=== PATIENT | female | born 1965 | race Caucasian/White ===

== ENCOUNTER 2023-09-24 10:29 | Day surgery (SDC) | payer OTHER ==
[2023-09-23 14:36] LABS: Absolute Lymphocytes (CBC) 5.6 K/uL (0.7-4.9); Hematocrit 42.7 % (36.0-45.0); Lymphocytes % 35.6 % (15.3-44.8); MCV 78.2 fL (80-100); MPV 8.3 fL (7.6-11.3); Platelets 319 thou/uL (152-406); RBC Red Blood Cell Count 5.46 M/uL (3.86-4.86)
[2023-09-23 14:40] LABS: Protime INR 0.92
[2023-09-23 14:50] LABS: Potassium 4.4 mEq/L (3.5-5.1)
[2023-09-24] MEDS ORDERED: NA CHLORIDE 0.9% 1,000 ML ONE (10:43)
[2023-09-24] MEDS ORDERED: CEFAZOLIN SODIUM 2 GM/VIAL ONE (10:43)
[2023-09-24] MEDS ORDERED: propofoL 200 MG/20 ML VIAL IV ONE (12:09)
[2023-09-24] MEDS ORDERED: MIDAZOLAM HCL 2 MG/2 ML INJ ONE (12:09)
[2023-09-24] MEDS ORDERED: LIDOCAINE 2% MPF 5 ML VIAL ONE (12:09)
[2023-09-24] MEDS ORDERED: dexAMETHasone 10 MG/ML VIAL ONE (12:09)
[2023-09-24] MEDS ORDERED: ONDANSETRON 4 MG/2 ML VIAL ONE (12:09)
[2023-09-24] MEDS ORDERED: FENTANYL CITR 100 MCG/2 ML ONE (12:10)
[2023-09-24] MEDS ORDERED: BUPIVACAINE 0.25% PF 10 ML VIAL ONE (12:12)
[2023-09-24] MEDS ORDERED: SUCCINYLCHOLINE 20 MG/ML (10 ML) IV ONE (12:28)
[2023-09-24] MEDS ORDERED: NS IV ONE (13:00)
[2023-09-24] MEDS ORDERED: CLINDAMYCIN IV ONE (13:00)
[2023-09-24] MEDS ORDERED: CLINDAMYCIN 300MG D5W 300 MG/50 ML BAG IV ONE (13:00)
--- NOTE | 2023-09-24 13:05 | P.OP ---
Preoperative diagnosis: LEFT Axillary Infected Hidradenitis with Abscess Postoperative diagnosis: LEFT Axillary Infected Hidradenitis with Abscess Primary procedure: Excisional Debridement of LEFT Axillary Infected Hidradenitis with Abscess Anesthesia: GETA + Local Estimated blood loss: ~5cc Specimen: Cultures, Debridement Tissue Findings: ~ 4cm x 3 cm LEFT Axillary Infected Hidradenitis with Abscess Complications: None Transferred to: Recovery Room Condition: Good
[2023-09-24] MEDS: HYDROMORPHONE HCL 1 MG/ML INJ ONE ×2 (13:21→13:29)
[2023-09-24] MEDS ORDERED: HYDROMORPHONE HCL 1 MG/ML INJ ONE (13:45)
[2023-09-24 15:12] VITALS: BP 149/76; TEMP 97.8; O2SAT 100
--- NOTE | 2023-09-24 15:21 | EKG ---
Test Date: 2023-09-23 Test Time: 15:14:40 Research And Development Chemist: WILFREDO MEASUREMENT RESULTS: Intervals: Rate: 112 IL: 160 QRSD: 86 QT: 358 QTc: 488 [place]: P: 68 IL: 160 QRS: 34 T: 50 INTERPRETIVE STATEMENTS: Sinus tachycardia Otherwise normal ECG No previous ECG available for comparison Electronically Signed On 09-24-23 15:19:38 LEAD ATHLETE by Evert العراقي
--- NOTE | 2023-09-24 20:14 | OP ---
Date of Procedure: 09/24/2023 Surgeon: Inderjit Raza MD, Preoperative Diagnosis: Left axillary infected hidradenitis with abscess. Postoperative Diagnosis: Left axillary infected hidradenitis with abscess. Procedure Performed: Excisional debridement of left axillary infected hidradenitis suppurativa with abscess. Anesthesia: General endotracheal plus local. Estimated Blood Loss: Less than 5 cc. Specimens: Culture sent for aerobic and anaerobic speciation and debridement tissue. Findings: Approximately 4 cm x 3 cm left axillary infected hidradenitis with abscess. Complications: None. Disposition: The patient was transferred to recovery room in good condition. Procedure In Detail: After informed consent was obtained, the patient was brought to the OR, prepped and draped in the usual sterile fashion. After adequate anesthesia was achieved, an elliptical inci ady down to subcutaneous tissue circumferentially dissecting out a left axillary abscess cavity whic h had abscess material was sent for both aerobic and anaerobic speciation with cultures at this point . I then removed all infected tissue including the necrotic and affected ellipse of skin down to sub cutaneous axillary fat. This was sent off for pathologic examination. I then achieved hemostasis wi th electrocautery. The wound was then irrigated copiously and packed with Vashe-soaked gauze and kavitha rile dressing placed over top. The patient tolerated the procedure without evidence of complication and transferred to PACU in good condition. All counts were correct at the end of the case. HOUSTON/CHEN Voice ID: [id number] Report ID: [id number]
== END 2023-09-24 14:41 | disposition home or self-care (01) ==
LOC: OR 10:29
PROVIDERS: ATTEND Surgery
PROC: 0JBF0ZZ Excision of Left Upper Arm Subcutaneous Tissue and Fascia, Open Approach (ICD-10-PCS; principal; 2023-09-24 13:00)
DX: L73.2 Hidradenitis suppurativa (principal); L02.412 Cutaneous abscess of left axilla; E11.9 Type 2 diabetes mellitus without complications; Z88.0 Allergy status to penicillin
CPT/HCPCS: 93005; 87070; 85025; 80048; 36415; 87205; 85610; 82947 ×2; 88304; 85730; 87075; 11450; J2704; J2001; J2250; J3010; J1100; J1170 ×2; J2405; J3490; J7030

== ENCOUNTER 2024-02-11 08:40 | Day surgery (SDC) | payer OTHER ==
[2024-02-10 13:37] LABS: Absolute Basophils 0.1 K/uL (0-0.5); Absolute Lymphocytes (CBC) 6.7 K/uL (0.7-4.9); Absolute Monocytes 0.7 K/uL (0.1-1.3); Absolute Neutrophil 10.4 K/uL (1.8-8.0); Basophils % 0.6 % (0-1.3); Eosinophils % 0.2 % (0-4.4); Hematocrit 44.7 % (36.0-45.0); Hemoglobin 14.3 g/dL (12.0-15.0); Lymphocytes % 37.1 % (15.3-44.8); MPV 8.6 fL (7.6-11.3); Monocytes % 3.8 % (3.3-12.3); Neutrophils % 58.3 % (41.7-73.7); Platelets 380 thou/uL (152-406); RBC Red Blood Cell Count 5.51 M/uL (3.86-4.86); Red Cell Distribution Width 14.2 % (12.1-15.2)
[2024-02-10 13:58] LABS: Anion Gap 11.3 mEq/L (5.0-15.0); Potassium 5.3 mEq/L (3.5-5.1)
[2024-02-11] MEDS ORDERED: VANCOMYCIN 1 GM/VIAL ONE (08:54)
[2024-02-11] MEDS ORDERED: NA CHLORIDE 0.9% 1,000 ML ONE (08:54)
[2024-02-11] MEDS ORDERED: NA CHLORIDE 0.9% 250 ML ONE (08:55)
[2024-02-11] MEDS ORDERED: LIDOCAINE HCL/EPINEPHRINE 20 ML MDV ONE (08:59)
[2024-02-11] MEDS ORDERED: BUPIVACAINE 0.25% PF 30 ML VIAL ONE (08:59)
[2024-02-11] MEDS ORDERED: FENTANYL CITR 100 MCG/2 ML ONE ×2 (09:16→11:04)
[2024-02-11] MEDS ORDERED: MIDAZOLAM HCL 2 MG/2 ML INJ ONE ×2 (09:16→11:06)
[2024-02-11] MEDS ORDERED: propofoL 200 MG/20 ML VIAL IV ONE ×2 (09:16→11:03)
[2024-02-11] MEDS ORDERED: LIDOCAINE 2% MPF 5 ML VIAL ONE (09:17)
[2024-02-11] MEDS ORDERED: LIDOCAINE 1% MPF 5 ML VIAL ONE (11:03)
[2024-02-11] MEDS ORDERED: ONDANSETRON 4 MG/2 ML VIAL ONE (11:36)
[2024-02-11] MEDS: LIDOCAINE HCL/EPINEPHRINE 20 ML MDV IJ ONE ×2 (11:38)
--- NOTE | 2024-02-11 12:15 | OP ---
Date of Procedure: 02/11/2024 Surgeon: Inderjit Raza MD, Preoperative Diagnosis: Right pubic abscess. Postoperative Diagnosis: Right pubic abscess. Procedure Performed: Incision, drainage, and debridement, right pubic abscess. Anesthesia: General endotracheal plus local with 1% lidocaine with epinephrine. Estimated Blood Loss: 5 cc. Specimen: Culture sent for both aerobic and anaerobic speciation and debridement tissue. Findings: A multiloculated right pubic abscess approximately 3 cm x 2 cm x 2 cm into the adipose. Complications: None. Disposition: The patient was transferred to recovery room in good condition. Procedure In Detail: After informed consent was obtained, the patient was brought to the operating r oom, prepped and draped in the usual sterile fashion. After adequate anesthesia was achieved, I made an elliptical incision circumferentially around an obvious abscess in the right pubic region down to subcutaneous tissues, immediately encountered was abscess material. This was cultured both aerobic and anaerobic speciation at this time. I then used a combination of sharp dissection as well as elec trocautery to dissect out this abscess cavity and material in its entirety removing the entire area o ut digitizing a multiloculated abscess, breaking up all the loculations. At this point, the area was copiously irrigated. Hemostasis was achieved with electrocautery. The wound was then packed with V ayana-soaked packing. Sterile dressing was placed over top. The patient tolerated the procedure with out incident or complication, transferred to PACU in good condition. All counts were correct at the end of the case. HOUSTON/CHEN Voice ID: [id number] Report ID: [id number]
[2024-02-11] MEDS: HYDROCODONE/APAP 7.5/325 MG TAB ONE (12:21)
--- NOTE | 2024-02-11 14:39 | EKG ---
Test Date: 2024-02-10 Test Time: 13:22:15 [employer]ime Kiln Worker: LILLY MEASUREMENT RESULTS: Intervals: Rate: 119 IN: 162 QRSD: 82 QT: 336 QTc: 472 [place]: P: 77 IN: 162 QRS: 45 T: 77 INTERPRETIVE STATEMENTS: Sinus tachycardia Otherwise normal ECG Compared to ECG 09/23/2023 15:14:40 No significant changes Electronically Signed On 02-11-24 14:36:56 CDT by Evert العراقي
--- NOTE | 2024-02-11 19:17 | P.OP ---
Preoperative diagnosis: RIGHT Pubic Abscess Postoperative diagnosis: RIGHT Pubic Abscess Primary procedure: Incision, Drainage, Debridement of RIGHT Pubic Abscess Anesthesia: GETA + Local Estimated blood loss: <5cc Specimen: Cultures ,Debridement Tissue Findings: Multiloculated RIGHT Pubic Abscess ~ 3cm x 2cm x 2cm Complications: None Transferred to: Recovery Room Condition: Good
[2024-02-12 14:34] VITALS: BP 141/76; TEMP 96.7; O2SAT 100
== END 2024-02-11 13:07 | disposition home or self-care (01) ==
LOC: OR 08:40
PROVIDERS: ATTEND Surgery
PROC: 0JDC0ZZ Extraction of Pelvic Region Subcutaneous Tissue and Fascia, Open Approach (ICD-10-PCS; principal; 2024-02-11 10:45)
DX: L02.219 Cutaneous abscess of trunk, unspecified (principal); E11.9 Type 2 diabetes mellitus without complications
CPT/HCPCS: 93005; 87070; 85025; 80048; 36415; 87205; 82947 ×2; 88304; 87075; 11042; J2704; J2001; J2250; J3010; J2405; J7050; J7030

== ENCOUNTER 2024-08-04 08:04 | Day surgery (SDC) | payer OTHER ==
[2024-08-03 12:48] LABS: Absolute Basophils 0.1 K/uL (0-0.5); Absolute Eosinophils 0.1 K/uL (0-0.5); Absolute Lymphocytes (CBC) 5.6 K/uL (0.7-4.9); Absolute Monocytes 1.3 K/uL (0.1-1.3); Absolute Neutrophil 14.9 K/uL (1.8-8.0); Basophils % 0.4 % (0-1.3); Eosinophils % 0.5 % (0-4.4); Hematocrit 38.6 % (36.0-45.0); Hemoglobin 12.4 g/dL (12.0-15.0); Lymphocytes % 25.5 % (15.3-44.8); MCH 25.9 pg (27.0-35.0); MCHC 32.2 g/dL (32.0-36.0); MCV 80.3 fL (80-100); MPV 9.2 fL (7.6-11.3); Monocytes % 5.9 % (3.3-12.3); Neutrophils % 67.7 % (41.7-73.7); Platelets 296 thou/uL (152-406); RBC Red Blood Cell Count 4.81 M/uL (3.86-4.86); Red Cell Distribution Width 14.6 % (12.1-15.2)
[2024-08-03 13:16] LABS: Atypical Lymphocytes 1 %; Differential Total Cells Count 100; Eosinophils 2 % (0-3); Lymphocytes 30 % (15-42); Monocytes 3 % (0-10); Platelet Estimate ADEQ; Segmented Neutrophils 64 % (40-80)
[2024-08-03 13:17] LABS: Blood Morphology Comment NOT SEEN (NOT SEEN)
[2024-08-04] MEDS: NA CHLORIDE 0.9% 1,000 ML ONE (08:50)
[2024-08-04] MEDS ORDERED: CLINDAMYCIN 600MG/D5W 50 ML IV ONE (08:55)
[2024-08-04] MEDS ORDERED: FENTANYL CITR 100 MCG/2 ML ONE (09:18)
[2024-08-04] MEDS ORDERED: propofoL 200 MG/20 ML VIAL IV ONE (09:18)
[2024-08-04] MEDS ORDERED: MIDAZOLAM HCL 2 MG/2 ML INJ ONE (09:18)
[2024-08-04] MEDS ORDERED: KETOROLAC 30 MG/ML INJ ONE (09:18)
[2024-08-04] MEDS ORDERED: ONDANSETRON 4 MG/2 ML VIAL ONE (09:18)
[2024-08-04] MEDS ORDERED: LIDOCAINE HCL/EPINEPHRINE 20 ML MDV ONE (09:56)
[2024-08-04] MEDS ORDERED: Phenylephrine HCl 10 MG/ML 1 ML VIAL ONE (09:59)
[2024-08-04] MEDS: LIDOCAINE 1% MPF 5 ML VIAL ONE (10:11)
--- NOTE | 2024-08-04 10:30 | P.OP ---
Preoperative diagnosis: LEFT gluteal / perirectal abscess Postoperative diagnosis: LEFT gluteal / perirectal abscess Primary procedure: Incision and drainage of LEFT gluteal / perirectal abscess Anesthesia: GETA + Local Estimated blood loss: <5cc Specimen: Cultures, debridement tissue Findings: ~ 2cm abscess Complications: None Transferred to: Recovery Room Condition: Good
[2024-08-04] MEDS: HYDROMORPHONE HCL 1 MG/ML INJ ONE (10:36)
[2024-08-04] MEDS ORDERED: HYDROCODONE/APAP 7.5/325 MG TAB ONE (11:11)
[2024-08-04] MEDS: HYDROCODONE/APAP 7.5/325 MG TAB PO ONE (11:14)
[2024-08-04 11:45] VITALS: BP 138/83; TEMP 98.2; O2SAT 99
--- NOTE | 2024-08-04 16:28 | OP ---
Date of Procedure: 08/04/2024 Surgeon: Inderjit Raza MD, Preoperative Diagnosis: Left gluteal/perirectal abscess. Postoperative Diagnosis: Left gluteal/perirectal abscess. Procedure Performed: Incision and drainage of left gluteal/perirectal abscess. Anesthesia: General endotracheal plus local with 1% lidocaine with epinephrine. Estimated Blood Loss: Less than 5 cc. Specimens: Culture sent for both aerobic and anaerobic speciation and debridement of tissue. Findings: Approximately 2 cm perirectal abscess listing along the left gluteal region. Complications: None. Disposition: Patient transferred to recovery room in good condition. Procedure In Detail: After informed consent was obtained, patient was brought to the operating room, prepped and draped in the usual sterile fashion, after adequate anesthesia was achieved. I made a l inear incision overlying the left gluteal abscess. Abscess material was encountered immediately. I digitized the abscess in its entirety, I opened it up which was multiloculated. At this point, the a marlon was cultured for both aerobic and anaerobic speciation, irrigated, and hemostasis was achieved wi th electrocautery. After appropriately curetting the area, the wound was then packed with Vashe soak ed dressing and a sterile dressing placed over top. The patient tolerated the procedure well without incident or complication and transferred to PACU in good condition. All counts were correct at the end of the case. HOUSTON/CHEN Voice ID: [id number] Report ID: [id number]
== END 2024-08-04 11:29 | disposition home or self-care (01) ==
LOC: OR 08:04
PROVIDERS: ATTEND Surgery
PROC: 0D9Q3ZX Drainage of Anus, Percutaneous Approach, Diagnostic (ICD-10-PCS; principal; 2024-08-04 09:45)
DX: K61.0 Anal abscess (principal)
CPT/HCPCS: 87070; 85025; 80048; 36415; 87205; 82947 ×2; 88305; 87075; 46050; J2704; J2003; J2371; J2250; J3010; J1171; J2405; J7030; 88304

== ENCOUNTER 2024-08-15 09:46 | Day surgery (SDC) | payer OTHER ==
--- NOTE | 2024-08-15 10:19 | EDPHYS ---
Physician Documentation [facility] Name: Anabella Gloria Age: 59 yrs Sex: Female : 1965 Arrival Date: 08/15/2024 Time: 09:46 Bed 19 Private MD: ED Physician Agusto Naranjo HPI: 08/15 15:43 This 59 yrs old Female presents to ER via Wheelchair with complaints of Abscess. rt 15:43 Patient had a recent surgery by Dr. Raza, second Dr. Raza's office today, rt diagnosed with an abdominal wall abscess, sent to the ED in preparation for surgery. Denies other acute complaints, symptoms are moderate in severity, no other aggravating or alleviating factors.. Historical: - Allergies: 09:54 PENICILLINS; ss 09:54 tramadol; ss 09:54 Toradol; ss - PMHx: 09:54 Diabetes mellitus; Vascular disease; Hypothyroidism; ss - Immunization history:: Client reports receiving the 2nd dose of the Covid vaccine. - Infectious Disease History:: Denies. - Social history:: Smoking status: Patient denies any tobacco usage or history of. - Family history:: not pertinent. ROS: 15:43 Constitutional: Negative for fever, chills, and weight loss, Cardiovascular: Negative rt for chest pain, palpitations, and edema, Respiratory: Negative for shortness of breath, cough, wheezing, and pleuritic chest pain, MS/Extremity: Negative for injury and deformity, Skin: Negative for injury, rash, and discoloration, Neuro: Negative for headache, weakness, numbness, tingling, and seizure, 15:43 Abdomen/GI: Positive for abdominal pain, Negative for nausea and vomiting, Exam: 15:43 Constitutional: This is a well developed, well nourished patient who is awake, alert, rt and in no acute distress. Head/Face: Normocephalic, atraumatic. Chest/axilla: Normal chest wall appearance and motion. Nontender with no deformity. No lesions are appreciated. Cardiovascular: Regular rate and rhythm with a normal S1 and S2. No gallops, murmurs, or rubs. Normal PMI, no JVD. No pulse deficits. Respiratory: Lungs have equal breath sounds bilaterally, clear to auscultation and percussion. No rales, rhonchi or wheezes noted. No increased work of breathing, no retractions or nasal flaring. MS/ Extremity: Pulses equal, no cyanosis. Neurovascular intact. Full, normal range of motion. 15:43 Abdomen/GI: Abdominal abscess with tenderness, no other focal areas of tenderness, no rebound, guarding, distention, Vital Signs: 09:59 BP 103 / 62; Pulse 99; Resp 16; Temp 98.5(O); Pulse Ox 100% ; Weight 104.33 kg; Height ss 5 ft. 8 in. ; Pain 8/10; 11:11 BP 110 / 68; Pulse 84; Resp 17; Pulse Ox 98% on R/A; rs5 11:30 BP 107 / 66; Pulse 87; Resp 17; Pulse Ox 98% on R/A; rs5 09:59 Body Mass Index 34.97 (104.33 kg, 172.72 cm) ss 09:59 Pain Scale: Adult ss MDM: 09:52 Medical Screening Exam initiated rt 15:45 Differential Diagnosis Abdominal wall abscess. Data reviewed: vital signs, nurses rt notes, lab test result(s). Consideration of Admission/Observation Patient to go to the operating room by Dr. Raza, patient to be discharged home surgery.. Management of patient was discussed with the following: Manufacturing Engineer Machining: Discussed with Dr. Raza, will take the patient to the operating room, will discharge patient home following surgery. Care significantly affected by the following chronic conditions: Diabetes. Counseling: I had a detailed discussion with the patient and/or guardian regarding the historical points, exam findings, and any diagnostic results supporting the discharge/admit diagnosis, the need for further work-up and treatment in the hospital. 08/15 10:43 Order name: CBC with Automated Diff; Complete Time: 15:45 EDMS 08/15 10:47 Order name: Protime (+INR); Complete Time: 15:45 EDMS 08/15 10:47 Order name: PTT, Activated Partial Thromb; Complete Time: 15:45 EDMS 08/15 10:49 Order name: Comprehensive Metabolic Panel; Complete Time: 15:45 EDMS 08/15 10:20 Order name: NPO; Complete Time: 10:43 rt Administered Medications: 10:40 Drug: vancoMYCIN IVPB 1 grams IVPB once over 2 hrs Route: IVPB; Infused Over: 2 hrs; rs5 Site: right forearm; 11:31 Follow up: Response: No adverse reaction; IV Status: Infusion continued upon admission rs5 10:40 Drug: morphine IVP or IV 4 mg IVP once over 4 mins Route: IVP; Infused Over: 4 mins; rs5 Site: right forearm; 11:01 Follow up: Response: No adverse reaction; Pain is decreased rs5 10:40 Drug: Ondansetron IVP 4 mg IVP once; over 2 minutes Route: IVP; Site: right forearm; rs5 11:01 Follow up: Response: No adverse reaction rs5 Disposition Summary: 08/15/24 10:19 Hospitalization Ordered Notes: Hospitalization Status: Observation rt Provider: Inderjit Raza rt Location: Operating Room rt Condition: Stable rt Problem: new rt Symptoms: are unchanged rt Bed/Room Type: Standard rt Room Assignment: rt Diagnosis - Abdominal wall abscess rt Forms: - Medication Reconciliation Form rt - SBAR form rt - Leadership Thank You Letter rt Signatures: Dispatcher [employer] EDMS Adriane Ray RN RN ss Agusto Naranjo MD MD rt Prosper Garza RN RN rs5 Corrections: (The following items were deleted from the chart) 10:54 10:54 CBC+H.LAB.BRZ ordered. EDMS EDMS 10:54 10:54 COMPREHENSIVE METABOLIC PANEL+C.LAB.BRZ ordered. EDMS EDMS 10:54 10:54 PROTIME (+INR)+COAG.LAB.BRZ ordered. EDMS EDMS 10:54 10:54 PTT, ACTIVATED+COAG.LAB.BRZ ordered. EDMS EDMS
--- NOTE | 2024-08-15 10:19 | ER ---
Nurse's Notes [facility] Name: Anabella Gloria Age: 59 yrs Sex: Female : 1965 Arrival Date: 08/15/2024 Time: 09:46 Bed 19 Private MD: Diagnosis: Abdominal wall abscess Presentation: 08/15 09:53 Chief complaint: Patient states: Sent by Dr. Raza for further evaluation and ss treatment of lower abd abscess. Coronavirus screen: Client denies travel out of the [place] in the last 14 days. Ebola Screen: Patient denies exposure to infectious person. Patient denies travel to an Ebola-affected area in the 21 days before illness onset. Risk Assessment: Do you want to hurt yourself or someone else? Patient reports no desire to harm self or others. Onset of symptoms. 09:53 Method Of Arrival: Wheelchair ss 09:53 Acuity: SHIRA 3 ss 09:59 Initial Sepsis Screen: Does the patient meet any 2 criteria? No. Patient's initial ss sepsis screen is negative. Does the patient have a suspected source of infection? No. Patient's initial sepsis screen is negative. Historical: - Allergies: 09:54 PENICILLINS; ss 09:54 tramadol; ss 09:54 Toradol; ss - PMHx: 09:54 Diabetes mellitus; Vascular disease; Hypothyroidism; ss - Immunization history:: Client reports receiving the 2nd dose of the Covid vaccine. - Infectious Disease History:: Denies. - Social history:: Smoking status: Patient denies any tobacco usage or history of. - Family history:: not pertinent. Screenin:00 [facility] ED Fall Risk Assessment (Adult) History of falling in the last 3 months, rs5 including since admission No falls in past 3 months (0 pts) Confusion or Disorientation No (0 pts) Intoxicated or Sedated No (0 pts) Impaired Gait Yes (1 pt) Mobility Assist Device Used Yes (1 pt) Altered Elimination No (0 pt) Score/Fall Risk Level 0 - 2 = Low Risk Oriented to surroundings, Maintained a safe environment. Abuse screen: Denies threats or abuse. Nutritional screening: No deficits noted. Tuberculosis screening: No symptoms or risk factors identified. Assessment: 10:00 General: Appears in no apparent distress. uncomfortable, Behavior is calm, cooperative. rs5 Pain: Complains of pain in abdomen Pain currently is 8 out of 10 on a pain scale. Quality of pain is described as aching, Is continuous. Neuro: Level of Consciousness is awake, alert, obeys commands, Oriented to person, place, time, situation. Cardiovascular: Patient's skin is warm and dry. Respiratory: Airway is patent Respiratory effort is even, unlabored, Respiratory pattern is regular, symmetrical. GI: Abdomen is round non-distended, abscess noted to lower abdomen Abd is soft and non tender X 4 quads. 10:00 : No signs and/or symptoms were reported regarding the genitourinary system. EENT: No rs5 signs and/or symptoms were reported regarding the EENT system. Derm: Skin is intact, Skin is pink, warm \T\ dry. Musculoskeletal: Range of motion: intact in all extremities. 11:09 Reassessment: Patient and/or family updated on plan of care and expected duration. Pain rs5 level reassessed. Patient is alert, oriented x 3, equal unlabored respirations, skin warm/dry/pink. 11:30 Reassessment: Patient and/or family updated on plan of care and expected duration. Pain rs5 level reassessed. Patient is alert, oriented x 3, equal unlabored respirations, skin warm/dry/pink. Vital Signs: 09:59 BP 103 / 62; Pulse 99; Resp 16; Temp 98.5(O); Pulse Ox 100% ; Weight 104.33 kg; Height ss 5 ft. 8 in. ; Pain 8/10; 11:11 BP 110 / 68; Pulse 84; Resp 17; Pulse Ox 98% on R/A; rs5 11:30 BP 107 / 66; Pulse 87; Resp 17; Pulse Ox 98% on R/A; rs5 09:59 Body Mass Index 34.97 (104.33 kg, 172.72 cm) ss 09:59 Pain Scale: Adult ss ED Course: 09:48 Patient arrived in ED. mg5 09:49 Agsuto Naranjo MD is Attending Physician. rt 09:54 Triage completed. ss 09:54 Arm band placed on left wrist. ss 10:00 Patient has correct armband on for positive identification. Placed in gown. Bed in low rs5 position. Call light in reach. Side rails up X2. 10:00 No provider procedures requiring assistance completed. rs5 10:15 Inserted saline lock: 22 gauge in right forearm, using aseptic technique. rs5 10:19 Inderjit Raza MD is Hospitalizing Provider. rt 10:36 Prosper Garza, LISBET is Primary Nurse. rs5 11:30 Patient admitted, IV remains in place. rs5 11:31 Provided Education on: need for admit. rs5 Administered Medications: 10:40 Drug: vancoMYCIN IVPB 1 grams IVPB once over 2 hrs Route: IVPB; Infused Over: 2 hrs; rs5 Site: right forearm; 11:31 Follow up: Response: No adverse reaction; IV Status: Infusion continued upon admission rs5 10:40 Drug: morphine IVP or IV 4 mg IVP once over 4 mins Route: IVP; Infused Over: 4 mins; rs5 Site: right forearm; 11:01 Follow up: Response: No adverse reaction; Pain is decreased rs5 10:40 Drug: Ondansetron IVP 4 mg IVP once; over 2 minutes Route: IVP; Site: right forearm; rs5 11:01 Follow up: Response: No adverse reaction rs5 Medication: 11:12 VIS not applicable for this client. rs5 Outcome: 10:19 Decision to Hospitalize by Provider. rt 11:30 Admitted to OR accompanied by nurse, rs5 11:30 Condition: stable 11:30 Instructed on the need for admit, Demonstrated understanding of instructions, 11:31 Patient left the ED. rs5 Signatures: Adriane Ray RN RN ss Agusto Naranjo MD MD rt Prosper Garza RN RN rs Karen Pepe [facility]
[2024-08-15] MEDS ORDERED: VANCOMYCIN 1 GM/VIAL ONE (10:37)
[2024-08-15] MEDS ORDERED: MORPHINE 4 MG/ML SYR ONE (10:37)
[2024-08-15] MEDS ORDERED: ONDANSETRON 4 MG/2 ML VIAL ONE ×2 (10:37→10:53)
[2024-08-15] MEDS ORDERED: NA CHLORIDE 0.9% 100 ML ONE (10:38)
[2024-08-15 10:42] LABS: Absolute Basophils 0.1 K/uL (0-0.5); Absolute Eosinophils 0.2 K/uL (0-0.5); Absolute Lymphocytes (CBC) 7.2 K/uL (0.7-4.9); Absolute Neutrophil 10.6 K/uL (1.8-8.0); Basophils % 0.7 % (0-1.3); Eosinophils % 1.1 % (0-4.4); Hematocrit 39.3 % (36.0-45.0); Lymphocytes % 37.5 % (15.3-44.8); MCH 26.1 pg (27.0-35.0); MCV 79.3 fL (80-100); MPV 8.7 fL (7.6-11.3); Neutrophils % 55.7 % (41.7-73.7); Platelets 370 thou/uL (152-406); RBC Red Blood Cell Count 4.96 M/uL (3.86-4.86); Red Cell Distribution Width 14.2 % (12.1-15.2)
[2024-08-15 10:47] LABS: PT Prothrombin Time 11.3 SECONDS (9.4-12.5); PTT, Activated Partial Thromb 33.6 SECONDS (24.3-36.9); Protime INR 1.01
[2024-08-15] MEDS ORDERED: MIDAZOLAM HCL 2 MG/2 ML INJ ONE (10:53)
[2024-08-15] MEDS ORDERED: FENTANYL CITR 100 MCG/2 ML ONE (10:53)
[2024-08-15] MEDS ORDERED: LIDOCAINE 2% MPF 5 ML VIAL ONE (10:53)
[2024-08-15] MEDS ORDERED: propofoL 200 MG/20 ML VIAL IV ONE (10:53)
[2024-08-15 11:03] LABS: ALT/SGPT 15 U/L (13-56); Albumin 3.6 g/dL (3.4-5.0); Albumin/Globulin Ratio 0.8 (1.1-1.8); Alkaline Phosphatase 125 U/L (45-117); Anion Gap 8.4 mEq/L (5.0-15.0); BUN Blood Urea Nitrogen 17 mg/dL (7-18); Bicarbonate 27 mEq/L (21-32); Bilirubin Total 0.3 mg/dL (0.2-1.0); Globulin 4.5 g/dL (2.3-3.5); Glomerular Filtration Rate 49 ml/min (=/>90); Glucose Level 306 mg/dL (74-106); Potassium 4.4 mEq/L (3.5-5.1); Protein, Total 8.1 g/dL (6.4-8.2); Sodium Level 134 mEq/L (136-145)
[2024-08-15 11:04] LABS: AST/SGOT < 10 U/L (15-37)
[2024-08-15] MEDS: LIDOCAINE HCL/EPINEPHRINE 20 ML MDV ONE (11:07)
[2024-08-15] MEDS ORDERED: NA CHLORIDE 0.9% 1,000 ML ONE (11:33)
[2024-08-15] MEDS: FENTANYL CITR 100 MCG/2 ML ONE ×2 (12:33→13:45)
[2024-08-15] MEDS ORDERED: FAMOTIDINE 20 MG/2 ML VIAL IV ONE (12:51)
[2024-08-15] MEDS ORDERED: SUGAMMADEX SODIUM 200 MG/2 ML VIAL IV ONE (12:51)
[2024-08-15] MEDS ORDERED: SUCCINYLCHOLINE 20 MG/ML (10 ML) IV ONE (12:51)
--- NOTE | 2024-08-15 13:33 | P.OP ---
Preoperative diagnosis: RIGHT Abdominal Wall Abscess Postoperative diagnosis: RIGHT Abdominal Wall Abscess Primary procedure: Incision and Drainage of Abscess Anesthesia: GETA + Local Estimated blood loss: <5cc Specimen: Cultures Findings: 6cm x 3cm x 3cm Multiloculated Abscess Complications: None Transferred to: Recovery Room Condition: Good
[2024-08-15] MEDS ORDERED: HYDROCODONE/APAP 10/325 TAB ONE (14:17)
[2024-08-15 14:55] VITALS: BP 114/79; TEMP 98.5; O2SAT 97
--- NOTE | 2024-08-15 20:07 | OP ---
Date of Procedure: 08/15/2024 Surgeon: Inderjit Raza MD, Preoperative Diagnosis: Right abdominal abscess. Postoperative Diagnosis: Right abdominal abscess. Procedure: Incision and drainage of abdominal abscess. Anesthesia: General endotracheal plus local with 1% lidocaine with epinephrine Estimated Blood Loss: Less than 5 cc. Specimen: Sent for culture, both aerobic and anaerobic speciation. Findings: 6 cm x 3 cm x 3 cm multiloculated abscess of the right abdominal skin. Complications: The patient had no complications. Disposition: Patient transferred to recovery room in good condition. Procedure In Detail: After informed consent was obtained, patient was brought to the operating room, prepped and draped in the usual sterile fashion after adequate anesthesia was achieved. I anestheti zed an area of the abdominal wall over where obvious large abscess was appreciated. I then incised t he area. I immediately encountered a significant amount of purulent material consistent with abscess . I cultured this for both aerobic and anaerobic speciation and digitized the track, opening in its entirety. The entire cavity was approximately 6 cm x 3 cm x 3 cm. It was copiously irrigated until completely clear. All loculations were broken up and electrocautery was used to achieve hemostasis w ith minimal electrocautery required. The area was irrigated with a pulse lavage device, at this poin t, and then packed with Vashe soaked Kerlix. Sterile dressing was placed over top. The patient tole rated the procedure without incident or complication, transferred to PACU in good condition. All counts were correct at the end of the case. HOUSTON/CHEN Voice ID: [id number] Report ID: [id number]
== END 2024-08-15 14:35 | disposition home or self-care (01) ==
LOC: ER 09:46 → DS 13:17
PROVIDERS: ATTEND Surgery
PROC: 0H97XZZ Drainage of Abdomen Skin, External Approach (ICD-10-PCS; principal; 2024-08-15 12:00)
DX: L02.211 Cutaneous abscess of abdominal wall (principal); E11.9 Type 2 diabetes mellitus without complications; I10 Essential (primary) hypertension; E66.9 Obesity, unspecified; F32.A Depression, unspecified; Z68.35 Body mass index [BMI] 35.0-35.9, adult
CPT/HCPCS: 96365; 87070; 85025; 36415; 87205; 85610; 85730; 87075; 80053; 96375; 99285; 49020; J2704; J2003; J2250; J3010 ×3; J2405 ×2; J7030; 87077; 87186